=== PATIENT | male | born 1995 | race Hispanic/Latino ===

== ENCOUNTER 2022-07-30 09:38 | Emergency (ER) | payer OTHER, SELFPAY ==
[~2022-07-30] VITALS: Ht 172.7 cm; Wt 74.8 kg
[2022-07-30 12:43] LABS: MONO REFLEX EBV COMP NEGATIVE (NEGATIVE)
[2022-07-30 13:22] VITALS: BP 138/70
[2022-07-31 15:09] LABS: EBV AB TO NUCLEAR ANTIGEN >600.0 U/mL (0.0-17.9); EBV VIRAL CAPSID AG IgM <36.0 U/mL (0.0-35.9)
== END 2022-07-30 13:25 | disposition home or self-care (01) ==
LOC: M ED 09:38
DX: J06.9 Acute upper respiratory infection, unspecified (principal); J02.9 Acute pharyngitis, unspecified